=== PATIENT | female | born 1960 | race Caucasian/White ===

== ENCOUNTER 2021-12-09 05:53 | Observation (INO) | payer OTHER ==
[~2021-12-09] VITALS: Ht 165.1 cm; Wt 88.5 kg
--- NOTE | 2021-12-09 06:25 | ED Chest Pain ---
General Chief Complaint: Chest Pain Stated Complaint: CP,BACK PAIN Nursing Triage Note: Pt arrives via POV from home for c/o chest pain; onset 0200. Pt states she lives in [place] but is currently in [place] visiting a friend. Pt reports at 0200 she woke from sleep r/t intense midline chest pain that radiates to her back; reports nausea et sweating. Pt reports her pain has decreased now et feels much better when pressing on the middle of her chest. Source: patient Exam Limitations: no limitations (ZARINA BENITEZ MED STUDENT) History of Present Illness Date Seen by Provider: Dec 09, 2021 Time Seen by Provider: 06:06 Initial Comments Mrs. Whitney is a 61yo female with PMH of HTN and previous cardiac workup over 10 years ago. She is a regular smoker and has a significant family history of cardiac events. States that at about 0200 this morning she was woken in a cold sweat. She had pain in her left upper chest that she rated a 9 at the time but is a 2 in the ER right now. Feels like someone is standing on her chest. She has been having this pain come on intermittently over the past couple weeks or so but states that this time she was also having pain in her back kind of on the L side that would not go away. She states that because it wouldn't go away she decided to come into the ER. She states she has had a cardiac workup that she is pretty sure included a stress test and echo but that would've been over 10 years ago. She states she has taken 4 tylenol. Has not taken any asprin or nitro. She also states that the pain is better when she clenches her L breast. Pain does not seem to be related to exertion or eating. ROS was positive for Chills with recent sick contact, sweat, nausea, back pain. She denies Vomiting, dysuria, changes in bowel habbits, and leg pain/swelling. She is a 1/4 PPd smoker right now and smokes marijuana. (ZARINA BENITEZ MED STUDENT) Allergies and Home Medications Allergies Coded Allergies: No Known Drug Allergies (Unverified , 12/09/21) Patient Home Medication List Home Medication List Reviewed: Yes (JR ANAND MD) Acetaminophen (Tylenol Extra Strength) 500 Mg Tablet, 1,000 MG PO Q8H PRN for PAIN-MILD (1-4), (Reported) Entered as Reported by: LAURA WOLFE on 12/09/211431 Last Action: Continued Atorvastatin Calcium (Atorvastatin Calcium) 10 Mg Tablet, 10 MG PO DAILY, (Reported) Entered as Reported by: LAURA WOLFE on 12/09/211431 Last Action: Continued Baclofen (Baclofen) 5 Mg Tablet, 5 MG PO DAILY, (Reported) Entered as Reported by: LAURA WOLFE on 12/09/211431 Last Action: Converted Famotidine (Famotidine) 40 Mg Tablet, 40 MG PO DAILY, (Reported) Entered as Reported by: LAURA WOLFE on 12/09/211431 Last Action: Converted Ibuprofen (Ibuprofen) 200 Mg Tablet, 400 MG PO Q8H PRN for PAIN-MILD (1-4), (Reported) Entered as Reported by: LAURA WOLFE on 12/09/211431 Last Action: Continued Levothyroxine Sodium (Synthroid) 137 Mcg Tablet, 137 MCG PO DAILY, (Reported) Entered as Reported by: LAURA WOLFE on 12/09/211431 Last Action: Converted Ramipril (Ramipril) 10 Mg Capsule, 10 MG PO DAILY, (Reported) Entered as Reported by: LAURA WOLFE on 12/09/211431 Last Action: Converted Review of Systems Review of Systems Constitutional: chills; No fever EENTM: No Blurred Vision, No Double Vision Respiratory: Cough, Shortness of Air; Denies Wheezing Cardiovascular: Chest Pain; Denies Edema, Denies Palpitations Gastrointestinal: Denies Abdominal Pain, Denies Constipated, Denies Diarrhea; Nausea; Denies Vomiting Genitourinary: Denies Burning, Denies Frequency Musculoskeletal: No joint pain, No joint swelling Skin: No pruritus, No rash Psychiatric/Neurological: Headache; Denies Numbness (ZARINA BENITEZ MED STUDENT) Past Irqvhyn-Shdvef-Boibbn Hx Patient Social History Tobacco Use?: Yes Tobacco type used: Cigarettes Smoking Status: Current Everyday Smoker Use of E-Cig and/or Vaping dev: No Substance use?: Yes Substance type: Marijuana Alcohol Use?: No Pt feels they are or have been: No (ZARINA BENITEZ STUDENT) Immunizations Up To Date Influenza Vaccine Up-to-Date: No; Not Current COVID19 Vaccine [employer] Eng[employer]ver: Moderna (ELINPTV STUDENT) Physical Exam Vital Signs Vital Signs - First Documented (JR ANAND MD) Vital Signs Capillary Refill : Less Than 3 Seconds (ELIZARINA [employer] STUDENT) Height, Weight, BMI Height: '" Weight: lbs. oz. kg; 31.00 BMI Method: General Appearance: No Apparent Distress, WD/WN HEENT: PERRL/EOMI, Pharynx Normal Respiratory: Chest Non Tender, Lungs Clear, Normal Breath Sounds Cardiovascular: Regular Rate, Rhythm, No Edema, No Murmur, Normal Peripheral Pulses Gastrointestinal: Normal Bowel Sounds, Non Tender, Soft Extremity: Non Tender, No Calf Tenderness, No Pedal Edema Neurologic/Psychiatric: Alert, Oriented x3, No Motor/Sensory Deficits Skin: Normal Color, Warm/Dry ([employer] STUDENT) Progress/Results/Core Measures Results/Orders Lab Results Laboratory Tests Test 12/09/21 06:28 12/09/21 06:49 12/09/21 08:48 Range/Units White Blood Count 7.7 4.3-11.0 10^3/uL Red Blood Count 5.15 H 3.80-5.11 10^6/uL Hemoglobin 15.6 11.5-16.0 g/dL Hematocrit 46 35-52 % Mean Corpuscular Volume 89 80-99 fL Mean Corpuscular Hemoglobin 30 25-34 pg Mean Corpuscular Hemoglobin Concent 34 32-36 g/dL Red Cell Distribution Width 12.4 10.0-14.5 % Platelet Count 313 130-400 10^3/uL Mean Platelet Volume 10.7 9.0-12.2 fL Immature Granulocyte % (Auto) 0 % Neutrophils (%) (Auto) 42 42-75 % Lymphocytes (%) (Auto) 44 12-44 % Monocytes (%) (Auto) 11 0-12 % Eosinophils (%) (Auto) 2 0-10 % Basophils (%) (Auto) 1 0-10 % Neutrophils # (Auto) 3.2 1.8-7.8 10^3/uL Lymphocytes # (Auto) 3.4 1.0-4.0 10^3/uL Monocytes # (Auto) 0.8 0.0-1.0 10^3/uL Eosinophils # (Auto) 0.2 0.0-0.3 10^3/uL Basophils # (Auto) 0.1 0.0-0.1 10^3/uL Immature Granulocyte # (Auto) 0.0 0.0-0.1 10^3/uL Prothrombin Time 12.0 L 12.2-14.7 SEC INR Comment 0.9 0.8-1.4 Activated Partial Thromboplast Time 30 24-35 SEC Sodium Level 138 135-145 MMOL/L Potassium Level 3.9 3.6-5.0 MMOL/L Chloride Level 105 98-107 MMOL/L Carbon Dioxide Level 20 L 21-32 MMOL/L Anion Gap 13 5-14 MMOL/L Blood Urea Nitrogen 12 7-18 MG/DL Creatinine 1.00 0.60-1.30 MG/DL Estimat Glomerular Filtration Rate 65 BUN/Creatinine Ratio 12 Glucose Level 117 H 70-105 MG/DL Calcium Level 9.8 8.5-10.1 MG/DL Corrected Calcium 8.5-10.1 MG/DL Magnesium Level 1.9 1.6-2.4 MG/DL Total Bilirubin 0.3 0.1-1.0 MG/DL Aspartate Amino Transf (AST/SGOT) 14 5-34 U/L Alanine Aminotransferase (ALT/SGPT) 19 0-55 U/L Alkaline Phosphatase 75 40-136 U/L Myoglobin 35.1 10.0-92.0 NG/ML Troponin I < 0.028 < 0.028 <0.028 NG/ML Total Protein 7.9 6.4-8.2 GM/DL Albumin 4.6 H 3.2-4.5 GM/DL Influenza Type A (RT-PCR) Not Detected Not Detecte Influenza Type B (RT-PCR) Not Detected Not Detecte SARS-CoV-2 RNA (RT-PCR) Not Detected Not Detecte (JR ANAND MD) My Orders Orders - JR ANAND MD Cbc With Automated Diff (12/09/21 06:26) Magnesium (12/09/21 06:26) Chest 1 View, Ap/Pa Only (12/09/21 06:26) Ekg Tracing (12/09/21 06:26) Comprehensive Metabolic Panel (12/09/21 06:26) Myoglobin Serum (12/09/21 06:26) Protime With Inr (12/09/21 06:26) Partial Thromboplastin Time (12/09/21 06:26) O2 (12/09/21 06:26) Monitor-Rhythm Ecg Trace Only (12/09/21 06:26) Lipid Panel (12/10/21 06:00) Ed Iv/Invasive Line Start (12/09/21 06:26) Troponin I Towner (12/09/21 06:26) Nitroglycerin 0.4 Mg Btl 25's (Nitrostat (12/09/21 06:45) Aspirin Chewable Tablet (Baby Aspirin Ch (12/09/21 06:45) Covid 19 Inhouse Test (12/09/21 06:42) Influenza A And B By Pcr (12/09/21 06:42) Troponin I Towner (12/09/21 08:30) Ct Angio Chest W (12/09/21 10:17) Lactated Ringers (Lr 1000 Ml Iv Solution (12/09/21 10:30) Iohexol Injection (Omnipaque 350 Mg/Ml 1 (12/09/21 10:30) Received Contrast (Hold Metformin- Contr (12/09/21 10:30) Sodium Chloride Flush (Catheter Flush Sy (12/09/21 10:30) Ns (Ivpb) (Sodium Chloride 0.9% Ivpb Bag (12/09/21 10:30) (JR ANAND MD) Medications Given in ED Current Medications Medications Dose Ordered Sig/Issa Route Start Time Stop Time Status Last Admin Dose Admin Iohexol 100 ml ONCE ONCE IV 12/09/21 10:30 12/09/21 10:31 DC 12/09/21 10:52 74 ML Lactated Ringer's 1,000 ml @ 0 mls/hr Q0M ONCE IV 12/09/21 10:30 12/09/21 10:31 DC 12/09/21 11:22 1,000 MLS/HR Sodium Chloride 10 ml NEEDED PRN IV 12/09/21 10:30 12/09/21 14:04 DC 12/09/21 10:52 10 ML Sodium Chloride 100 ml ONCE ONCE IV 12/09/21 10:30 12/09/21 10:31 DC 12/09/21 10:52 80 ML (JR ANAND MD) Vital Signs/I&O 12/09/21 12/09/21 06:00 06:00 Temp 37.0 Pulse 86 Resp 18 B/P (MAP) 108/90 (96) Pulse Ox 97 97 O2 Delivery Room Air Room Air (JR ANAND MD) Blood Pressure Mean: 96 Progress Progress Note #1: Time: 06:51 Progress Note Patient was seen and examined along with Zarina Benitez, MS 4. She states her pain is currently 2/10 or less and she categorizes it as a mild discomfort. She has a little discomfort radiating into her back as well. Aspirin nitroglycerin have been ordered. Initial EKG demonstrated no ischemia. Patient also described some recent congestion and headache. She consents to swab for influenza and Covid. Progress Note #2: Time: 10:13 Progress Note Repeat troponin was negative. Patient stated nitroglycerin alleviated her remnant chest pain. However, she still does have some slight pain in her mid back. This is nontender to palpation. Progress Note #3: Time: 11:38 Progress Note Case was discussed with Dr. Streeter. Because of her risk factors and continued symptom of upper back pain, we will admit her to finish out cardiac rule out. Prior to admission a CT angio of the chest was obtained which showed no dissection, PE, or other major abnormalities. Dr. Garcia has been notified of admission. Shaunna with Dr. Streeter's team is here to see the patient. We discussed CODE STATUS and she elects to remain full code. Toprol-XL 50 mg p.o. now and twice daily is also being ordered per Dr. Streeter's recommendation. (JR ANAND MD) Initial ECG Impression Date: Dec 09, 2021 Initial ECG Impression Time: 05:59 Initial ECG Rate: 82 Initial ECG Rhythm: Normal Sinus Initial ECG Intervals: Normal Comment Normal sinus rhythm with no ST elevation or depression. PVCs noted. No abnormal intervals or axis deviation. (JR ANAND MD) Diagnostic Imaging Diagonstic Imaging: Xray Plain Films/CT/US/NM/MRI: chest Comments Chest x-ray viewed by me and report reviewed. See report below: NAME: MARY WHITNEY [facility] REC#: [id number] PT STATUS: REG ER : 1960 PHYSICIAN: JR ANAND MD ADMIT DATE: 12/09/21/ER Draft Date of Exam:12/09/21 CHEST 1 VIEW, AP/PA ONLY EXAMINATION: Chest radiograph, portable AP view. DATE: 12/09/2021 6:52 AM INDICATION: 61-year-old female, chest pain. COMPARISON: None. FINDINGS: Heart size and mediastinal contours are unremarkable. There is no identified pneumothorax. There is no large pleural effusion. There is no identified focal airspace consolidation. IMPRESSION: No identified acute cardiopulmonary abnormality. Dictated on workstation # [id number] Dict: 12/09/21 0652 Trans: 12/09/21 0655 [facility] [id number] Interpreted by: LAMAR SOTO MD Diagonstic Imaging: CT Plain Films/CT/US/NM/MRI: chest Comments CT angiogram chest report reviewed. See report below: NAME: MARY WHITNEY [facility] REC#: [id number] PT STATUS: REG ER : 1960 PHYSICIAN: JR ANAND MD ADMIT DATE: 12/09/21/ER Draft Date of Exam:12/09/21 CT ANGIO CHEST W PROCEDURE: CT angiography of the chest with contrast. TECHNIQUE: Multiple contiguous axial images were obtained through the chest after uneventful bolus administration of intravenous contrast. 3D reconstructed CTA MIP acquisitions were also performed. Auto Exposure Controls were utilized during the CT exam to meet ALARA standards for radiation dose reduction. INDICATION: Chest pain, back pain. COMPARISON: No relevant comparison Pulmonary arterial branches patent, well opacified. No filling defect. No PE. The thoracic aorta patent and nonaneurysmal. 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 There is no pleural or pericardial effusion. No evidence for edema or pneumonia. No suspicious lung mass. There are a few 3 to 4 mm subpleural benign granulomata noted. No adenopathy. The visualized upper abdomen nonacute. IMPRESSION: Negative for PE or other acute abnormalities. Dictated on workstation # [id number] Dict: 12/09/21 1059 Trans: 12/09/21 1102 [facility] [id number] Interpreted by: CARMEN WILL (JR ANAND MD) Departure Communication (Admissions) Time/Spoke to Admitting Phy: 11:25 Dr. Garcia Time/Spoke to Consulting Phy: 10:15 Dr. Streeter (JR ANAND MD) Impression Primary Impression: Chest pain Qualified Codes: R07.9 - Chest pain, unspecified Additional Impression: Upper back pain Disposition: HOME, SELF-CARE Condition: Improved Admissions Decision to Admit Reason: Admit from ER (General) Decision to Admit/Date: Dec 09, 2021 Time/Decision to Admit Time: 10:15 (JR ANAND MD) Departure-Patient Inst. Referrals: NO,LOCAL PHYSICIAN (PCP/Family) Primary Care Physician Medical Student Attestation and Attending Note: I have personally interviewed and examined this patient along with Zarina Benitez, MS 4. I have reviewed student documentation including history, physical, and assessments. I agree with the documentation except where otherwise noted. Exam: General: Alert, oriented, mild distress, tearful, well developed HEENT: Normocephalic and atraumatic Heart: Regular rate and rhythm without murmur, anterior chest nontender Lungs: Clear to auscultation bilaterally with normal effort Abdomen: Soft, nontender, nondistended, normal bowel sounds Extremities: Normal exam, no edema, no calf tenderness Neuropsych: Alert, oriented, no focal deficits, tearful at times with anxiousness Skin: Warm and dry without rashes, no rash over areas of stated pain (JR ANAND MD) ZARINA BENITEZ MED STUDENT Dec 09, 2021 06:25 JR ANAND MD Dec 09, 2021 06:54
[2021-12-09 06:31] LABS: BASOPHILS # (AUTO) 0.1 10^3/uL (0.0-0.1); BASOPHILS % (AUTO) 1 % (0-10); EOSINOPHILS # (AUTO) 0.2 10^3/uL (0.0-0.3); EOSINOPHILS % (AUTO) 2 % (0-10); HEMATOCRIT 46 % (35-52); HEMOGLOBIN 15.6 g/dL (11.5-16.0); LYMPHOCYTES # (AUTO) 3.4 10^3/uL (1.0-4.0); LYMPHOCYTES % (AUTO) 44 % (12-44); MEAN CORPUSCULAR HEMOGLOBIN 30 pg (25-34); MEAN CORPUSCULAR HGB CONC 34 g/dL (32-36); MEAN CORPUSCULAR VOLUME 89 fL (80-99); MEAN PLATELET VOLUME 10.7 fL (9.0-12.2); MONOCYTES # (AUTO) 0.8 10^3/uL (0.0-1.0); MONOCYTES % (AUTO) 11 % (0-12); NEUTROPHILS # (AUTO) 3.2 10^3/uL (1.8-7.8); NEUTROPHILS % (AUTO) 42 % (42-75); PLATELET COUNT 313 10^3/uL (130-400); WHITE BLOOD COUNT 7.7 10^3/uL (4.3-11.0)
[2021-12-09 06:33] LABS: ALBUMIN 4.6 GM/DL (3.2-4.5); CHLORIDE 105 MMOL/L (98-107); POTASSIUM 3.9 MMOL/L (3.6-5.0); SODIUM 138 MMOL/L (135-145)
[2021-12-09 06:35] LABS: CALCIUM 9.8 MG/DL (8.5-10.1)
[2021-12-09 06:36] LABS: GLUCOSE 117 MG/DL (70-105); TOTAL PROTEIN 7.9 GM/DL (6.4-8.2)
[2021-12-09 06:37] LABS: CARBON DIOXIDE 20 MMOL/L (21-32); INR 0.9 (0.8-1.4)
[2021-12-09 06:38] LABS: BILIRUBIN,TOTAL 0.3 MG/DL (0.1-1.0)
[2021-12-09 06:39] LABS: ALKALINE PHOSPHATASE 75 U/L (40-136)
[2021-12-09 06:40] LABS: GFR ESTIMATED 65
[2021-12-09 06:41] LABS: BUN/CREATININE RATIO 12
[2021-12-09 06:42] LABS: MAGNESIUM 1.9 MG/DL (1.6-2.4)
[2021-12-09 06:43] LABS: ALANINE AMINOTRANSFERASE 19 U/L (0-55)
[2021-12-09] MEDS ORDERED: NITROGLYCERIN 0.4 MG SL TABS BTL 25'S SL PRN ×2 (06:45→14:15)
[2021-12-09] MEDS ORDERED: ASPIRIN 81 MG CHEW (CHILDREN'S ASA) PO ONE (06:45)
--- NOTE | 2021-12-09 06:55 | Diagnostic Imaging Report ---
EXAMINATION: Chest radiograph, portable AP view. DATE: 12/09/2021 6:52 AM INDICATION: 61-year-old female, chest pain. COMPARISON: None. FINDINGS: Heart size and mediastinal contours are unremarkable. There is no identified pneumothorax. There is no large pleural effusion. There is no identified focal airspace consolidation. IMPRESSION: No identified acute cardiopulmonary abnormality. Dictated by: Dictated on workstation # [id number]
[2021-12-09] MEDS ORDERED: CATHETER FLUSH 10 ML SYR IV PRN (10:30)
[2021-12-09] MEDS ORDERED: NS 100 ML (IVPB) BAG IV ONE (10:30)
[2021-12-09] MEDS ORDERED: IOHEXOL 350 MG/ML 100 ML (OMNIPAQUE 350) VIAL IV ONE (10:30)
[2021-12-09] MEDS ORDERED: LACTATED RINGERS 1,000 ML IV ONE (10:30)
[2021-12-09] MEDS ORDERED: HOLD METFORMIN - RECEIVED CONTRAST 20 ML VIAL IV SCH (10:30)
--- NOTE | 2021-12-09 11:03 | Diagnostic Imaging Report ---
PROCEDURE: CT angiography of the chest with contrast. TECHNIQUE: Multiple contiguous axial images were obtained through the chest after uneventful bolus administration of intravenous contrast. 3D reconstructed CTA MIP acquisitions were also performed. Auto Exposure Controls were utilized during the CT exam to meet ALARA standards for radiation dose reduction. INDICATION: Chest pain, back pain. COMPARISON: No relevant comparison Pulmonary arterial branches patent, well opacified. No filling defect. No PE. The thoracic aorta patent and nonaneurysmal. 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 There is no pleural or pericardial effusion. No evidence for edema or pneumonia. No suspicious lung mass. There are a few 3 to 4 mm subpleural benign granulomata noted. No adenopathy. The visualized upper abdomen nonacute. IMPRESSION: Negative for PE or other acute abnormalities. Dictated by: Dictated on workstation # [id number]
--- NOTE | 2021-12-09 12:50 | Consultation-Cardiology ---
HPI-Cardiology Cardiology Consultation: Date of Consultation 12/09/21 Time Seen by a Provider: 11:50 Date of Admission 12-09-21 Attending Physician Mercy Garcia MD Admitting Physician No,Local Physician Consulting Physician Roman Streeter MD HPI: Chief Complaint: Chest pain Ms. Whitney is a 61 yr old female admitted to 512 from the ED. She reports she lives in [place], but is in town visiting a friend. She reports around 2:00 this morning she woke up from sleep drenched in sweat. She reports she went to take a shower and developed left sided pain/pressure in her left breast which radiated through to her back. She states it was severe and she dropped to her knees. She states after several minutes it eased, but did not completely resolve. She states after 3 hours of constant pain/pressure she came to the ED. She reports the pain would improve with holding her left breast. No c/o SOB or palpitations. She reports having some nausea. No diaphoresis. She states the pain her back has resolved at this time, but she continues to have discomfort, albeit mild, in her left breast. It is reproducible with palpation. She smokes cigs. No c/o LE swelling. Review of Systems-Cardiology Review of Systems Constitutional: No chills, No fever, No malaise Eyes: No vision change Ears/Nose/Throat: No epistaxis, No recent hearing loss Respiratory: As described under HPI Cardiovascular: As described under HPI Gastrointestinal: As described under HPI Genitourinary: No dysuria, No hematuria Musculoskeletal: back pain Skin: No rash on exposed areas, No ulcerations on exposed areas Psychiatric/Neurological: No anxiety, No depression, No seizure, No focal weakness, No syncope Hematologic: No bleeding abnormalities SRR-Pwsddi-Ffonor Hx Patient Social History Smoking Status: Current Everyday Smoker Have you traveled recently?: No Alcohol Use?: No Substance type: Marijuana Pt feels they are or have been: No Tobacco type used: Cigarettes Past Medical History PMH As described under Assessment. Family Medical History Family Medical History: She reports her brother passed from an FL at age 64. She reports her father had CAD starting at age 54. Allergies and Home Medications Allergies Coded Allergies: No Known Drug Allergies (Unverified , 12/09/21) Patient Home Medication List Acetaminophen (Tylenol Extra Strength) 500 Mg Tablet, 1,000 MG PO Q8H PRN for PAIN-MILD (1-4), (Reported) Entered as Reported by: LAURA WOLFE on 12/09/211431 Last Action: Continued Atorvastatin Calcium (Atorvastatin Calcium) 10 Mg Tablet, 10 MG PO DAILY, (Reported) Entered as Reported by: LAURA WOLFE on 12/09/211431 Last Action: Continued Baclofen (Baclofen) 5 Mg Tablet, 5 MG PO DAILY, (Reported) Entered as Reported by: LAURA WOLFE on 12/09/211431 Last Action: Converted Famotidine (Famotidine) 40 Mg Tablet, 40 MG PO DAILY, (Reported) Entered as Reported by: LAURA WOLFE on 12/09/211431 Last Action: Converted Ibuprofen (Ibuprofen) 200 Mg Tablet, 400 MG PO Q8H PRN for PAIN-MILD (1-4), (Reported) Entered as Reported by: LAURA WOLFE on 12/09/211431 Last Action: Continued Levothyroxine Sodium (Synthroid) 137 Mcg Tablet, 137 MCG PO DAILY, (Reported) Entered as Reported by: LAURA WOLFE on 12/09/211431 Last Action: Converted Ramipril (Ramipril) 10 Mg Capsule, 10 MG PO DAILY, (Reported) Entered as Reported by: LAURA WOLFE on 12/09/211431 Last Action: Converted Physical Exam-Cardiology Physical Exam Vital Signs/I&O 12/09/21 12/09/21 12/10/21 12/10/21 22:58 23:26 01:00 04:00 Temp 36.2 36.5 Pulse 68 70 79 Resp 14 12 B/P (MAP) 138/103 (115) 146/112 (123) Pulse Ox 98 97 96 O2 Delivery Room Air Room Air Room Air 12/10/21 12/10/21 12/10/21 12/10/21 07:00 08:00 09:16 09:18 Temp 37.0 Pulse 69 66 73 Resp 14 18 B/P (MAP) 160/100 (120) 160/109 (126) Pulse Ox 97 98 O2 Delivery Room Air Room Air Room Air 12/10/21 00:00 Intake Total 1450 ml Balance 1450 ml Capillary Refill : Less Than 3 Seconds Constitutional: AAO x 3, well-developed, well-nourished HEENT: PERRL, hearing is well preserved; No oral hygience is good (missing teeth) Neck: No carotid bruit; carotid pulses are 2 + bilaterally Respiratory: No accessory muscle use, No respiratory distress; chest expansion is symmetric, chest is bilaterally symmetric, rhonchi (scattered), other (prolonged exp phase) Cardiovascular: regular rate-rhythm; No JVD; S1 and S2 Gastrointestinal: No tender; soft, round, audible bowel sounds Extremities: no lower extremity edema bilateral Neurologic/Psychiatric: grossly intact (moves all extremities) Skin: No rash on exposed areas, No ulcerations on exposed areas Data Review Labs Laboratory Tests 12/10/21 05:05: Triglycerides Level 267H, Cholesterol Level 246H, LDL Cholesterol Direct 173H, VLDL Cholesterol 53H, HDL Cholesterol 41 Radiology NAME: MARY WHITNEY [facility] REC#: [id number] PT STATUS: REG ER : 1960 PHYSICIAN: JR ANAND MD ADMIT DATE: 12/09/21/ER Draft Date of Exam:12/09/21 CT ANGIO CHEST W PROCEDURE: CT angiography of the chest with contrast. TECHNIQUE: Multiple contiguous axial images were obtained through the chest after uneventful bolus administration of intravenous contrast. 3D reconstructed CTA MIP acquisitions were also performed. Auto Exposure Controls were utilized during the CT exam to meet ALARA standards for radiation dose reduction. INDICATION: Chest pain, back pain. COMPARISON: No relevant comparison Pulmonary arterial branches patent, well opacified. No filling defect. No PE. The thoracic aorta patent and nonaneurysmal. 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 There is no pleural or pericardial effusion. No evidence for edema or pneumonia. No suspicious lung mass. There are a few 3 to 4 mm subpleural benign granulomata noted. No adenopathy. The visualized upper abdomen nonacute. IMPRESSION: Negative for PE or other acute abnormalities. Dictated on workstation # [id number] Dict: 12/09/21 1059 Trans: 12/09/21 1102 [facility] [id number] Interpreted by: CARMEN WILL Electronically signed by: ECG Impression ECG Initial ECG Rhythm: Normal Sinus A/P-Cardiology Assessment/Admission Diagnosis Chest pain of undetermined etiology HTN HLD Tobaccoism - cessation advised Prob COPD Hypothyroidism - replacement tx H/O recurrent mastitis - follows with [facility] in [place] Discussion and Recomendations Chest pain of undetermined etiology - no evidence of ACS thus far - advise MPI to eval perfusion - Echocardiogram to eval perfusion Monitor lab Further recs will be based on her hospital course We would like to thank medical services for this consult Clinical Quality Measures AMI/AHF: ASA po Prior to arrival: VANNESSA Wharton Dec 09, 2021 12:50
[2021-12-09] MEDS ORDERED: REGADENOSON 0.4 MG/5 ML SYR (LEXISCAN) IV ONE (13:00)
--- NOTE | 2021-12-09 13:21 | History & Physical-Hospitalist ---
History of Present Illness HPI/Chief Complaint Patient is a 61-year-old female with past medical history of hypertension, hyperlipidemia, tobacco abuse who presented to the emergency department due to chest pain. She is here from [place] helping a friend recover from surgery. She states it started around 2:00 this morning and she woke up with it and was diaphoretic. She had pain in her upper chest that she rated as a 10 out of 10 and in her upper back as well. She took 4 Tylenol and a shower and that didn't help. She rated her pain as a 2 out of 10 in the emergency room and was given a nitro which resolved her pain. Episodes and had work-up but that this was over 10 years ago. Troponin was negative on arrival and CTA was done which was negative for PE. Given her high risk nature she was admitted for observation for chest pain rule out. Source: patient Date Seen 12/09/21 Time Seen by a Provider: 14:00 Attending Physician Elza Garcia MD PCP No,Local Physician Referring Physician Date of Admission Dec 09, 2021 at 11:25 Home Medications & Allergies Home Medications Reviewed patient Home Medication Reconciliation performed by pharmacy medication reconciliations nuclear worker technician and/or nursing. Patients Allergies have been reviewed. Allergies Allergies Coded Allergies No Known Drug Allergies (Unverified12/09/21) Past Aljypyz-Nxaesu-Oxzztc Hx Patient Social History Tobacco Use?: Yes Tobacco type used: Cigarettes Smoking Status: Current Everyday Smoker Use of E-Cig and/or Vaping dev: No Substance use?: Yes Substance type: Marijuana Alcohol Use?: No Pt feels they are or have been: No Current Status status: No status: No Advance Directives: No Communicates: Verbally Primary Language: Citizen Of [place] Preferred Spoken Language: Citizen Of [place] Is interpretation needed?: No Implanted or Applied Medical D: None Family Medical History Heart Disease, CAD Under 55 Years Old, CAD Over 55 Years Old, Diabetes Brother of [place] at 64yo, dad had CABg at 54yo Review of Systems Constitutional: No chills; diaphoresis; No fever EENTM: no symptoms reported Respiratory: no symptoms reported; No short of breath Cardiovascular: see HPI, chest pain; No edema, No Hx of Intervention Gastrointestinal: nausea; No vomiting Genitourinary: no symptoms reported Musculoskeletal: no symptoms reported Skin: no symptoms reported Psychiatric/Neurological: No Symptoms Reported Physical Exam Physical Exam Vital Signs Vital Signs - First Documented Capillary Refill : Less Than 3 Seconds Height, Weight, BMI Height: '" Weight: lbs. oz. kg; 31.00 BMI Method: General Appearance: No Apparent Distress, WD/WN HEENT: PERRL/EOMI, Moist Mucous Membranes Neck: Normal Inspection, Supple Respiratory: Lungs Clear, No Accessory Muscle Use, No Respiratory Distress Cardiovascular: Regular Rate, Rhythm, No Murmur Gastrointestinal: Normal Bowel Sounds, Non Tender, Soft Extremity: No Calf Tenderness, No Pedal Edema Neurologic/Psychiatric: Alert, Oriented x3, Normal Mood/Affect Skin: Normal Color, Warm/Dry Results Results/Procedures Labs Laboratory Tests 12/09/21 06:28 Patient resulted labs reviewed. Imaging: Reviewed Imaging Report [facility] [place], [place] NAME: MARY WHITNEY [facility] REC#: [id number] PT STATUS: REG ER : 1960 PHYSICIAN: JR ANAND MD ADMIT DATE: 12/09/21/ER Signed Date of Exam:12/09/21 CHEST 1 VIEW, AP/PA ONLY EXAMINATION: Chest radiograph, portable AP view. DATE: 12/09/2021 6:52 AM INDICATION: 61-year-old female, chest pain. COMPARISON: None. FINDINGS: Heart size and mediastinal contours are unremarkable. There is no identified pneumothorax. There is no large pleural effusion. There is no identified focal airspace consolidation. IMPRESSION: No identified acute cardiopulmonary abnormality. Dictated by: Dictated on workstation # [id number] Dict: 12/09/2152 Trans: 12/09/21 075 [facility] [id number] Interpreted by: LAMAR SOTO MD Electronically signed by: LAMAR SOTO MD 12/09/21 0750 [facility] [place] NAME: DEVONTEMARY [facility] REC#: [id number] PT STATUS: REG ER : 1960 PHYSICIAN: JR ANAND MD ADMIT DATE: 12/09/21/ER Draft Date of Exam:12/09/21 CT ANGIO CHEST W PROCEDURE: CT angiography of the chest with contrast. TECHNIQUE: Multiple contiguous axial images were obtained through the chest after uneventful bolus administration of intravenous contrast. 3D reconstructed CTA MIP acquisitions were also performed. Auto Exposure Controls were utilized during the CT exam to meet ALARA standards for radiation dose reduction. INDICATION: Chest pain, back pain. COMPARISON: No relevant comparison Pulmonary arterial branches patent, well opacified. No filling defect. No PE. The thoracic aorta patent and nonaneurysmal. 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 There is no pleural or pericardial effusion. No evidence for edema or pneumonia. No suspicious lung mass. There are a few 3 to 4 mm subpleural benign granulomata noted. No adenopathy. The visualized upper abdomen nonacute. IMPRESSION: Negative for PE or other acute abnormalities. Dictated on workstation # [id number] Dict: 12/09/21 1059 Trans: 12/09/21 1102 [facility] [id number] Interpreted by: CARMEN WILL Electronically signed by: Assessment/Plan Admission Diagnosis Chest pain Admission Status: Observation Assessment and Plan Chest pain Tobacco abuse Troponin negative x2 High risk given risk factors and family history Planning for stress test tomorrow per cardiology note Recommend smoking cessation HTN HLD Continue home meds Hypothyroidism Continue home meds DVT ppx: Lovenox Clinical Quality Measures AMI/AHF: ASA po Prior to arrival: ELZA Adair MD Dec 09, 2021 13:21
[2021-12-09] MEDS ORDERED: morphine INJ 4 MG/ML 1 ML (VIAL/SYRINGE) IV PRN (14:15)
[2021-12-09] MEDS ORDERED: ONDANSETRON 4 MG/2 ML (SDV) Z0FRAN IVP PRN (14:15)
[2021-12-09] MEDS ORDERED: ACET-2267 PO (14:32)
[2021-12-09] MEDS ORDERED: FAMO40TA6 PO (14:32)
[2021-12-09] MEDS ORDERED: BACL5TAB PO (14:32)
[2021-12-09] MEDS ORDERED: LEVO137T32 PO (14:32)
[2021-12-09] MEDS ORDERED: IBUP-2473 PO (14:32)
[2021-12-09] MEDS ORDERED: ATOR10TA66 PO (14:32)
[2021-12-09] MEDS ORDERED: RAMI10CA69 PO (14:32)
[2021-12-09 15:47] VITALS: BP 145/78
[2021-12-09] MEDS ORDERED: IBUPROFEN TABLET 200 MG TAB PO PRN (16:00)
--- NOTE | 2021-12-09 16:30 | Consultation-Cardiology ---
HPI-Cardiology Cardiology Consultation: Date of Consultation 12/09/21 Time Seen by a Provider: 13:20 Date of Admission Attending Physician Mercy Garcia MD Admitting Physician No,Local Physician Consulting Physician MARTIN HARDEN MD, MA, FACP, FACC, FSCAI, CCDS HPI: Chief Complaint: Chest pain Ms. Michel is a 61 yr old female admitted to 512 from the ED. She reports she lives in [place], but is in town visiting a friend. She reports around 2:00 this morning she woke up from sleep drenched in sweat. She reports she went to take a shower and developed left sided pain/pressure in her left breast which radiated through to her back. She states it was severe and she dropped to her knees. She states after several minutes it eased, but did not completely resolve. She states after 3 hours of constant pain/pressure she came to the ED. She reports the pain would improve with holding her left breast. No c/o SOB or palpitations. She reports having some nausea. No diaphoresis. She states the pain her back has resolved at this time, but she continues to have discomfort, albeit mild, in her left breast. It is reproducible with palpation. She smokes cigs. No c/o LE swelling. Review of Systems-Cardiology Review of Systems Constitutional: No chills, No fever, No malaise Eyes: No vision change Ears/Nose/Throat: No epistaxis, No recent hearing loss Respiratory: As described under HPI Cardiovascular: As described under HPI Gastrointestinal: As described under HPI Genitourinary: No dysuria, No hematuria Musculoskeletal: back pain Skin: No rash on exposed areas, No ulcerations on exposed areas Psychiatric/Neurological: No anxiety, No depression, No seizure, No focal weakness, No syncope Hematologic: No bleeding abnormalities ITB-Enoylq-Uxrhol Hx Patient Social History Smoking Status: Current Everyday Smoker Have you traveled recently?: No Alcohol Use?: No Substance type: Marijuana Pt feels they are or have been: No Tobacco type used: Cigarettes Past Medical History PMH As described under Assessment. Family Medical History Family Medical History: She reports her brother passed from an MT at age 64. She reports her father had CAD starting at age 54. Allergies and Home Medications Allergies Coded Allergies: No Known Drug Allergies (Unverified , 12/09/21) Patient Home Medication List Home Medication List Reviewed: Yes Acetaminophen (Tylenol Extra Strength) 500 Mg Tablet, 1,000 MG PO Q8H PRN for PAIN-MILD (1-4), (Reported) Entered as Reported by: LAURA WOLFE on 12/09/211431 Last Action: Continued Atorvastatin Calcium (Atorvastatin Calcium) 10 Mg Tablet, 10 MG PO DAILY, (Reported) Entered as Reported by: LAURA WOLFE on 12/09/211431 Last Action: Continued Baclofen (Baclofen) 5 Mg Tablet, 5 MG PO DAILY, (Reported) Entered as Reported by: LAURA WOLFE on 12/09/211431 Last Action: Converted Famotidine (Famotidine) 40 Mg Tablet, 40 MG PO DAILY, (Reported) Entered as Reported by: LAURA WOLFE on 12/09/211431 Last Action: Converted Ibuprofen (Ibuprofen) 200 Mg Tablet, 400 MG PO Q8H PRN for PAIN-MILD (1-4), (Reported) Entered as Reported by: LAURA WOLFE on 12/09/211431 Last Action: Continued Levothyroxine Sodium (Synthroid) 137 Mcg Tablet, 137 MCG PO DAILY, (Reported) Entered as Reported by: LAURA WOLFE on 12/09/211431 Last Action: Converted Ramipril (Ramipril) 10 Mg Capsule, 10 MG PO DAILY, (Reported) Entered as Reported by: LAURA WOLFE on 12/09/211431 Last Action: Converted Physical Exam-Cardiology Physical Exam Vital Signs/I&O 12/09/21 12/09/21 12/09/21 12/09/21 06:00 06:00 12:28 12:59 Temp 37.0 Pulse 86 69 Resp 18 16 B/P (MAP) 108/90 (96) 203/105 Pulse Ox 97 97 99 O2 Delivery Room Air Room Air 12/09/21 12/09/21 13:08 15:47 Temp 36.6 Pulse 69 Resp 18 B/P (MAP) 145/78 (100) Pulse Ox 99 O2 Delivery Room Air Capillary Refill : Less Than 3 Seconds Constitutional: AAO x 3, well-developed, well-nourished HEENT: PERRL, hearing is well preserved; No oral hygience is good (missing teeth) Neck: No carotid bruit; carotid pulses are 2 + bilaterally Respiratory: No accessory muscle use, No respiratory distress; chest expansion is symmetric, chest is bilaterally symmetric, rhonchi (scattered), other (prolonged exp phase) Cardiovascular: regular rate-rhythm; No JVD; S1 and S2 Gastrointestinal: No tender; soft, round, audible bowel sounds Extremities: no lower extremity edema bilateral Neurologic/Psychiatric: grossly intact (moves all extremities) Skin: No rash on exposed areas, No ulcerations on exposed areas Data Review Labs Laboratory Tests 12/09/21 06:28: White Blood Count 7.7, Red Blood Count 5.15H, Hemoglobin 15.6, Hematocrit 46, Mean Corpuscular Volume 89, Mean Corpuscular Hemoglobin 30, Mean Corpuscular Hemoglobin Concent 34, Red Cell Distribution Width 12.4, Platelet Count 313, Mean Platelet Volume 10.7, Immature Granulocyte % (Auto) 0, Neutrophils (%) (Auto) 42, Lymphocytes (%) (Auto) 44, Monocytes (%) (Auto) 11, Eosinophils (%) (Auto) 2, Basophils (%) (Auto) 1, Neutrophils # (Auto) 3.2, Lymphocytes # (Auto) 3.4, Monocytes # (Auto) 0.8, Eosinophils # (Auto) 0.2, Basophils # (Auto) 0.1, Immature Granulocyte # (Auto) 0.0, Prothrombin Time 12.0L, INR Comment 0.9, Activated Partial Thromboplast Time 30, Sodium Level 138, Potassium Level 3.9, Chloride Level 105, Carbon Dioxide Level 20L, Anion Gap 13, Blood Urea Nitrogen 12, Creatinine 1.00, Estimat Glomerular Filtration Rate 65, BUN/Creatinine Ratio 12, Glucose Level 117H, Calcium Level 9.8, Corrected Calcium , Magnesium Level 1.9, Total Bilirubin 0.3, Aspartate Amino Transf (AST/SGOT) 14, Alanine Aminotransferase (ALT/SGPT) 19, Alkaline Phosphatase 75, Myoglobin 35.1, Troponin I < 0.028, Total Protein 7.9, Albumin 4.6H 12/09/21 06:49: Influenza Type A (RT-PCR) Not Detected, Influenza Type B (RT-PCR) Not Detected, SARS-CoV-2 RNA (RT-PCR) Not Detected 12/09/21 08:48: Troponin I < 0.028 A/P-Cardiology Assessment/Admission Diagnosis Chest pain of undetermined etiology HTN HLD Tobaccoism - cessation advised Prob COPD Hypothyroidism - replacement tx H/O recurrent mastitis - follows with [facility] in [place] Discussion and Recomendations - no evidence of ACS thus far - advise MPI to eval perfusion - Echocardiogram to eval perfusion - Monitor lab - Further recs will be based on her hospital course - We would like to thank medical services for this consult Clinical Quality Measures AMI/AHF: ASA po Prior to arrival: MARTIN Correia MD FACP FAC CCDS Dec 09, 2021 16:30
[2021-12-09 19:33] VITALS: BP 154/86
[2021-12-09] MEDS: CATHETER FLUSH 10 ML SYR IV SCH (20:58)
[2021-12-09 23:26] VITALS: BP 138/103
[2021-12-10 04:00] VITALS: BP 146/112
[2021-12-10 05:32] LABS: TRIGLYCERIDES 267 MG/DL (<150); VLDL CHOLESTEROL 53 MG/DL (5-40)
[2021-12-10 05:37] LABS: CHOLESTEROL 246 MG/DL (< 200)
[2021-12-10 05:38] LABS: HDL CHOLESTEROL 41 MG/DL (40-60)
[2021-12-10] MEDS: ACETAMINOPHEN 500 MG TAB (TYLENOL) PO PRN ×2 (05:59→11:12)
[2021-12-10] MEDS: CATHETER FLUSH 10 ML SYR IV SCH ×2 (06:00→14:26)
[2021-12-10] MEDS ORDERED: LEVOTHYROXINE 25 MCG (LEVOTHROID) TAB PO SCH (06:30)
[2021-12-10] MEDS ORDERED: LEVOTHYROXINE 112 MCG (LEVOTHROID) TAB PO SCH (06:30)
[2021-12-10] MEDS: CATHETER FLUSH 10 ML SYR IV PRN ×2 (07:50→08:14)
[2021-12-10 08:00] VITALS: BP 160/100
[2021-12-10] MEDS ORDERED: REGADENOSON 0.4 MG/5 ML SYR (LEXISCAN) IV ONE (08:50)
[2021-12-10] MEDS ORDERED: BACLOFEN 10 MG (LIORESAL) TAB PO SCH (09:00)
[2021-12-10] MEDS ORDERED: RAMIPRIL 2.5 MG (ALTACE) CAP PO SCH (09:00)
[2021-12-10] MEDS ORDERED: AtorvaSTATin TABLET 10 MG TABLET PO SCH (09:00)
[2021-12-10] MEDS ORDERED: ASPIRIN 81 MG CHEW (CHILDREN'S ASA) PO SCH (09:00)
[2021-12-10] MEDS ORDERED: FAMOTIDINE 20 MG (PEPCID) TABLET PO SCH (09:00)
[2021-12-10] MEDS ORDERED: ASPIRIN E.C. 81 MG (ECOTRIN) TAB PO SCH (09:00)
[2021-12-10 09:16] VITALS: BP 160/109
--- NOTE | 2021-12-10 09:37 | Progress Note - Cardiology ---
Cardiology SOAP Progress Note Subjective: No c/o CP this morning No c/o SOB or palpitations Feels better than yesterday Objective: I&O/Vital Signs 12/09/21 12/09/21 12/10/21 12/10/21 22:58 23:26 01:00 04:00 Temp 36.2 36.5 Pulse 68 70 79 Resp 14 12 B/P (MAP) 138/103 (115) 146/112 (123) Pulse Ox 98 97 96 O2 Delivery Room Air Room Air Room Air 12/10/21 12/10/21 12/10/21 12/10/21 07:00 08:00 09:16 09:18 Temp 37.0 Pulse 69 66 73 Resp 14 18 B/P (MAP) 160/100 (120) 160/109 (126) Pulse Ox 97 98 O2 Delivery Room Air Room Air Room Air 12/10/21 00:00 Intake Total 1450 ml Balance 1450 ml Constitutional: AAO x 3, well-developed, well-nourished Respiratory: No accessory muscle use, No respiratory distress; chest expansion is symmetric, chest is bilaterally symmetric, rhonchi (scattered), other (prolonged exp phase) Cardiovascular: regular rate-rhythm; No JVD; S1 and S2 Gastrointestional: No tender; soft, round, audible bowel sounds Extremities: no lower extremity edema bilateral Neurologic/Psychiatric: grossly intact (moves all extremities) Skin: No rash on exposed areas, No ulcerations on exposed areas Results/Procedures: Labs Laboratory Tests 12/10/21 05:05: Triglycerides Level 267H, Cholesterol Level 246H, LDL Cholesterol Direct 173H, VLDL Cholesterol 53H, HDL Cholesterol 41 Laboratory Tests 12/09/21 06:28 A/P: Assessment: Chest pain of undetermined etiology HTN HLD - lipids not well controlled - statin dose increased by medical services Tobaccoism - cessation advised Prob COPD Hypothyroidism - replacement tx H/O recurrent mastitis - follows with [facility] in [place] Plan: - no evidence of ACS thus far - MPI to eval perfusion today - Echocardiogram to eval perfusion - results pending - Monitor lab Clinical Quality Measures AMI/AHF: ASA po Prior to arrival: VANNESSA Wharton Dec 10, 2021 09:37
[2021-12-10] MEDS ORDERED: ASPI-1238 PO (10:43)
[2021-12-10] MEDS ORDERED: MTP25TSR PO (10:43)
[2021-12-10] MEDS ORDERED: ATOR40TA70 PO (10:43)
--- NOTE | 2021-12-10 10:49 | Discharge Inst-Simple/Standard ---
Discharge Inst-Standard Patient Instructions/Follow Up Plan of Care/Instructions/FU: Please continue to take your medications as written. Please follow up with your primary care doctor to follow up this hospital stay. Activity as Tolerated: Yes Discharge Diet: Cardiac Diet Return to The Hospital For: Chest pain, shortness of breath, weaknes, heart racing, if you feel you are getting worse. ELZA ZAFAR MD Dec 10, 2021 10:48
[2021-12-10 11:13] VITALS: BP 152/116
[2021-12-10 14:00] VITALS: BP 150/107
[2021-12-10] MEDS ORDERED: MTP100TCR PO (14:46)
[2021-12-10 15:31] VITALS: BP 157/107
--- NOTE | 2021-12-10 17:17 | STRESS TEST ---
DATE OF SERVICE: 12/10/2021 RESTING AND POST REGADENOSON TECHNETIUM-99M TETROFOSMIN SPECT CT IMAGING ORDERING PHYSICIAN: Shaunna Osborne APRN. ATTENDING PHYSICIAN: Dr. Garcia. OTHER PHYSICIAN: Dr. Harden. CLINICAL DIAGNOSIS: Chest discomfort. Baseline images were carried out after injection of 10.62 mCi of technetium-99m Tetrofosmin. This was followed by 0.4 mg Regadenoson and 30.1 mCi of technetium-99m Tetrofosmin for stress imaging. The electrocardiogram showed sinus rhythm with incomplete right bundle branch block. The electrocardiogram did not change significantly with the Regadenoson infusion. Review of images at rest and following stress does not indicate any significant perfusion defects consistent with myocardial ischemia or infarction. Gated images show normal global left ventricular systolic function with a normal regional wall motion. Left ventricular ejection fraction is calculated to be 76%. Left ventricular end-diastolic volume is 45 mL. TID is absent (1.06). CONCLUSIONS: 1. No evidence of any significant myocardial ischemia or infarction on this study. 2. Normal regional wall motion. 3. Normal global left ventricular systolic function with a calculated ejection fraction of 76%. Job ID: [id number] DocumentID: [id number] Dictated Date: 12/10/2021 14:39:58 Project Consultant Date: 12/10/2021 17:16:51 Dictated By: MARTIN HARDEN MD, MA, FACP, FACC,
--- NOTE | 2021-12-11 07:45 | Discharge Summary ---
Diagnosis/Chief Complaint Date of Admission Dec 09, 2021 at 11:25 Date of Discharge Dec 10, 2021 at 15:20 Discharge Date: Dec 10, 2021 Admission Diagnosis Chest pain Primary Care No,Local Physician Discharge Summary Discharge Physical Exam Allergies: Coded Allergies: No Known Drug Allergies (Unverified , 12/09/21) Vitals & I&Os Vital Signs Date Time Temp Pulse Resp B/P (MAP) Pulse Ox O2 Delivery O2 Flow Rate FiO2 12/10/21 15:31 37.0 57 16 157/107 100 12/10/21 14:00 Room Air General Appearance: No Apparent Distress, WD/WN Cardiovascular: Regular Rate, Rhythm, No Murmur Neurologic/Psychiatric: Alert, Oriented x3 Hospital Course Patient is a 61-year-old feel the history of hyperlipidemia and tobacco abuse who presented to the emergency department due to chest pain. She was admitted for ACS rule out and had negative serial troponins. Given her high risk family history in addition to her own personal risk factors she underwent nuclear stress test which was negative. She was discharged home in stable and improved condition to follow-up with her primary care provider. I did discuss increasing her Lipitor due to her persistently elevated cholesterol after 4 months of treatment with 10 mg of Lipitor. Labs (last 24 hrs) Patient resulted labs reviewed. Imaging: Reviewed Imaging Report Discussion & Recommendations Discharge Planning: >30 minutes discharge planning Discharge Home Medications: Active Scripts Active Metoprolol Succinate 100 Mg Tab.er.24h 100 Mg PO DAILY Atorvastatin Calcium 40 Mg Tablet 40 Mg PO HS Reported Ibuprofen 200 Mg Tablet 400 Mg PO Q8H PRN Tylenol Extra Strength (Acetaminophen) 500 Mg Tablet 1,000 Mg PO Q8H PRN Baclofen 5 Mg Tablet 5 Mg PO DAILY Famotidine 40 Mg Tablet 40 Mg PO DAILY Synthroid (Levothyroxine Sodium) 137 Mcg Tablet 137 Mcg PO DAILY Ramipril 10 Mg Capsule 10 Mg PO DAILY Instructions to patient/family Please see electronic discharge instructions given to patient. Clinical Quality Measures AMI/AHF: ASA po Prior to arrival: No Copy Copies To 1: [facility] ELZA ZAFAR MD Dec 11, 2021 07:45
== END 2021-12-10 15:20 | disposition home or self-care (01) ==
LOC: EDUNIT# 05:53 → ER 05:57 → CSD 11:25
PROVIDERS: ADMIT Family Medicine; ATTEND Family Medicine
DX: R07.89 Other chest pain (principal); N61.0 Mastitis without abscess; M54.89 Other dorsalgia; I10 Essential (primary) hypertension; E78.5 Hyperlipidemia, unspecified; E03.9 Hypothyroidism, unspecified; F17.210 Nicotine dependence, cigarettes, uncomplicated; Z79.890 Hormone replacement therapy; Z79.899 Other long term (current) drug therapy
CPT/HCPCS: 71045; 71275; 78452; 80053; 80061; 83735; 83874; 84484; 85025; 85610; 85730; 87636; 93005; 93017; 93041; 93306; 96374; 99284; A9502; 36415